=== PATIENT | male | born 1945 | race Caucasian/White ===

== ENCOUNTER 2020-01-03 10:08 | Inpatient (IN) | payer MEDICARE ==
[~2020-01-03] VITALS: Ht 177.8 cm; Wt 77.3 kg
[2020-01-03 11:57] LABS: BASOPHILS # (AUTO) 0.1 X10'3 (0-0.2); EOSINOPHILS # (AUTO) 0.3 X10'3 (0-0.9); HEMOGLOBIN 15.8 g/dl (14.0-17.9); MONOCYTES # (AUTO) 0.6 X10'3 (0-0.9); NEUTROPHILS # (AUTO) 2.1 X10'3 (1.8-7.7); WHITE BLOOD COUNT 4.4 X10'3 (4.5-11.0)
[2020-01-03 12:00] LABS: BASOPHILS % (AUTO) 1.3 % (0-1); EOSINOPHILS % (AUTO) 6.4 % (0-6); HEMATOCRIT 45.7 % (42.0-52.0); LYMPHOCYTES # (AUTO) 1.4 X10'3 (1.1-4.8); LYMPHOCYTES % (AUTO) 31.1 % (21-51); MEAN CORPUSCULAR HEMOGLOBIN 33.1 PG (27.0-31.0); MEAN CORPUSCULAR HGB CONC 34.5 g/dL (33.0-36.5); MEAN CORPUSCULAR VOLUME 96.2 FL (78-98); MEAN PLATELET VOLUME 8.4 FL (7.4-10.4); MONOCYTES % (AUTO) 13.4 % (2-12); NEUTROPHILS % (AUTO) 47.8 % (42-75); PLATELET COUNT 162 X10'3 (140-440); RED BLOOD COUNT 4.75 X10'6 (4.70-6.10); RED CELL DISTRIBUTION WIDTH 13.3 % (11.5-14.5)
[2020-01-03 12:02] LABS: ALANINE AMINOTRANSFERASE 38 U/L (12-78); ALBUMIN 3.7 G/DL (3.4-5.0); ALBUMIN/GLOBULIN RATIO 0.9 (1.1-1.5); ALKALINE PHOSPHATASE 53 IU/L (46-116); ANION GAP 8 (8-16); ASPARTATE AMINO TRANSFERASE 20 U/L (10-37); BILIRUBIN,TOTAL 0.8 MG/DL (0.1-1.0); BLOOD UREA NITROGEN 20 MG/DL (7-18); BUN/CREATININE RATIO 20.2 (5.4-32.0); CHLORIDE 103 MMOL/L (99-107); CREATININE 0.99 MG/DL (0.60-1.10); GLUCOSE 147 MG/DL (70-104); SODIUM 138 MMOL/L (135-145); TOTAL PROTEIN 7.6 G/DL (6.4-8.2); eGFR 74 ML/MIN
--- NOTE | 2020-01-03 13:21 | NUR ---
WAITING ON DR. MORGAN TO CALL BACK PT. TAKING A NAP
[2020-01-03] MEDS ORDERED: ampicillin/sulbac 3gm/NS 100ml 100 ML IV ONE (13:50)
[2020-01-03] MEDS ORDERED: vancomycin/NS 1 GM ADD-VANTAGE 250 ML IV ONE (13:55)
[2020-01-03] MEDS: normal saline 1000ml 1,000 ML IV SCH (14:03)
[2020-01-03] MEDS ORDERED: potassium Cl 20 mEq SR tablet PO PRN ×2 (14:05)
[2020-01-03] MEDS ORDERED: HYDROcodone/acetaminophen 5mg/325mg tablet PO PRN (14:05)
[2020-01-03] MEDS ORDERED: ondansetron/PF 4mg/2ml inj IV PRN (14:05)
[2020-01-03] MEDS ORDERED: HYDROcodone/acetaminophen 10/325mg tab PO PRN (14:05)
[2020-01-03] MEDS ORDERED: mag hydrox/Alum hydrox/simeth 30ml oral suspension PO PRN (14:05)
[2020-01-03] MEDS ORDERED: diphenhydrAMINE 25mg capsule PO PRN (14:05)
[2020-01-03] MEDS ORDERED: magnesium hydroxide 30ml (MOM) UD suspension PO PRN (14:05)
[2020-01-03] MEDS ORDERED: magnesium Cl slow-release 64mg tablet PO PRN (14:05)
[2020-01-03] MEDS ORDERED: magnesium 4gm in 100ml NS 100 ML IV PRN (14:05)
[2020-01-03] MEDS ORDERED: bisacodyl 10mg suppository rectal RC PRN (14:05)
[2020-01-03] MEDS ORDERED: acetaminophen 650mg rectal suppository RC PRN (14:05)
[2020-01-03] MEDS ORDERED: magnesium 2GM in 50ml NS 50 ML IV PRN (14:05)
[2020-01-03] MEDS ORDERED: acetaminophen 325mg tablet PO PRN ×2 (14:05)
[2020-01-03] MEDS ORDERED: morphine 2 MG/ML inj. syringe IV PRN ×2 (14:05)
[2020-01-03] MEDS ORDERED: potassium CL 10mEq/100ml bag 100 ML IV PRN ×2 (14:05)
[2020-01-03 14:32] LABS: HEMOGLOBIN A1C 5.8 % (4.5-6.2)
[2020-01-03 15:20] VITALS: BP 143/87
[2020-01-03] MEDS ORDERED: ADV50250 IH (16:36)
[2020-01-03] MEDS ORDERED: LOSA1TAB39 PO (16:36)
--- NOTE | 2020-01-03 16:52 | NUR ---
Patient came up with splint in place, unable to view hand cellulitis/ cat bite. No photos were taken in the ER.
[2020-01-03] MEDS: piperacillin/tazo 3.375gm/50ml 50 ML IV SCH ×2 (17:02→23:57)
[2020-01-03] MEDS ORDERED: albuterol 2.5 MG/3 ML nebule NEB PRN (17:25)
[2020-01-03 18:00] VITALS: BP 143/92
--- NOTE | 2020-01-03 18:30 | NUR ---
Problems reprioritized. Patient report given, questions answered & plan of care reviewed with Maria Elena CAZARES.
--- NOTE | 2020-01-03 18:40 | NUR ---
A nurse from ER called me regarding the patient needing a Loo Sling per Dr. Escobedo. I paged 5 CUPS and some sugar to apply this.
--- NOTE | 2020-01-03 19:00 | NUR ---
[employer] called staff back and informed her that hospital does not carry Loo sling; and to attach the pt's sling to IV pole to elevate arm off bed and above head instead.
--- NOTE | 2020-01-03 19:17 | NUR ---
Patient in room ORTHO 4011. I have received report from Bindu CAZARES and had the opportunity to ask questions and assume patient care.
[2020-01-03] MEDS: K and/or MAG REPLACEMENT MC SCH (20:00)
[2020-01-03] MEDS: heparin, porcine 5000 units/ml vial SQ SCH (20:20)
[2020-01-03] MEDS: budesonide 0.5mg/2ml UD nebule IH SCH (20:24)
[2020-01-03 22:00] VITALS: BP 110/84
--- NOTE | 2020-01-03 22:26 | NUR ---
Problems reprioritized. Patient report given, questions answered & plan of care reviewed with Consuelo CAZARES.
--- NOTE | 2020-01-03 23:17 | NUR ---
[id number] ASSUMED CARE OF PATIENT WITH VERBAL REPORT FROM STEVIE CAZARES
--- NOTE | 2020-01-03 23:21 | NUR ---
AGREE WITH PATIENT ASSMT DONE BY STEVIE CAZARES. PRIOR TO MY ASSUMING CARE OF THIS PT. RESTING COMFORTABLY AT THIS TIME, NO DISTRESS NOTED. R HAND/ARM PLACED UP ON PILLOW.
[2020-01-04] MEDS: vancomycin/NS 1 GM ADD-VANTAGE 250 ML IV SCH ×2 (01:51→13:56)
[2020-01-04 05:53] LABS: BASOPHILS # (AUTO) 0.1 X10'3 (0-0.2); BASOPHILS % (AUTO) 1.3 % (0-1); EOSINOPHILS # (AUTO) 0.4 X10'3 (0-0.9); HEMATOCRIT 44.3 % (42.0-52.0); LYMPHOCYTES # (AUTO) 1.7 X10'3 (1.1-4.8); LYMPHOCYTES % (AUTO) 33.7 % (21-51); MEAN CORPUSCULAR HEMOGLOBIN 32.5 PG (27.0-31.0); MEAN CORPUSCULAR HGB CONC 33.7 g/dL (33.0-36.5); MEAN CORPUSCULAR VOLUME 96.5 FL (78-98); MEAN PLATELET VOLUME 8.3 FL (7.4-10.4); MONOCYTES # (AUTO) 0.6 X10'3 (0-0.9); MONOCYTES % (AUTO) 12.1 % (2-12); NEUTROPHILS # (AUTO) 2.2 X10'3 (1.8-7.7); NEUTROPHILS % (AUTO) 43.9 % (42-75); PLATELET COUNT 145 X10'3 (140-440); RED CELL DISTRIBUTION WIDTH 12.9 % (11.5-14.5)
[2020-01-04 06:00] VITALS: BP 137/91
[2020-01-04 06:08] LABS: ALANINE AMINOTRANSFERASE 27 U/L (12-78); ALBUMIN 3.1 G/DL (3.4-5.0); ALKALINE PHOSPHATASE 44 IU/L (46-116); ANION GAP 8 (8-16); ASPARTATE AMINO TRANSFERASE 18 U/L (10-37); BLOOD UREA NITROGEN 18 MG/DL (7-18); BUN/CREATININE RATIO 17.8 (5.4-32.0); CALCIUM 8.5 MG/DL (8.5-10.1); CHLORIDE 106 MMOL/L (99-107); CHOL/HDL RATIO 4.1 (0.00-4.99); CHOLESTEROL 146 MG/DL (0-200); CREATININE 1.01 MG/DL (0.60-1.10); GLUCOSE 101 MG/DL (70-104); HDL CHOLESTEROL 36 MG/DL (35-60); LDL CHOLESTEROL 92 MG/DL (50-100); MAGNESIUM 2.2 MG/DL (1.5-2.4); PHOSPHORUS 3.6 MG/DL (2.3-4.5); POTASSIUM 3.7 MMOL/L (3.5-5.1); SODIUM 141 MMOL/L (135-145); TOTAL CARBON DIOXIDE 27.5 MMOL/L (24-32); TOTAL PROTEIN 6.3 G/DL (6.4-8.2); TRIGLYCERIDES 121 MG/DL (20-135); eGFR 73 ML/MIN
--- NOTE | 2020-01-04 06:34 | NUR ---
Problems reprioritized. Patient report given, questions answered & plan of care reviewed with JULIETTE RN.
--- NOTE | 2020-01-04 06:55 | NUR ---
Patient in room ORTHO 4011. I have received report from SAGE HOSKINS and had the opportunity to ask questions and assume patient care.
[2020-01-04] MEDS: budesonide 0.5mg/2ml UD nebule IH SCH (07:58)
[2020-01-04] MEDS ORDERED: HYDROchlorothiazide 25mg tablet PO SCH (08:00)
[2020-01-04] MEDS ORDERED: losartan 50mg tablet PO SCH (08:00)
[2020-01-04] MEDS: K and/or MAG REPLACEMENT MC SCH (08:00)
[2020-01-04] MEDS: normal saline 1000ml 1,000 ML IV SCH ×2 (08:03→10:03)
[2020-01-04] MEDS: piperacillin/tazo 3.375gm/50ml 50 ML IV SCH ×2 (08:05→16:00)
[2020-01-04] MEDS: heparin, porcine 5000 units/ml vial SQ SCH (08:22)
[2020-01-04 10:05] LABS: CLARITY,URINE CLEAR (Clear); COLOR,URINE YELLOW (Yellow); GLUCOSE, URINE NEGATIVE (Neg); KETONES,URINE NEGATIVE (Neg); LEUKOCYTE ESTERASE ,URINE NEGATIVE (Neg); NITRITES, URINE NEGATIVE (Neg); OCCULT BLOOD,URINE NEGATIVE (Neg); PH,URINE 6.5 (4.8-8.0); PROTEIN,URINE NEGATIVE (Neg); UROBILINOGEN,URINE 0.2 E.U/dL (0.2-1.0)
[2020-01-04 10:08] LABS: UA COLLECTION TYPE VOIDED
[2020-01-04 11:00] VITALS: BP 141/82
--- NOTE | 2020-01-04 15:16 | NUR ---
PAGER ID: [phone] MESSAGE: DR. HURT, DR. MORGAN IS HERE. SAID [id number]/MAGGY CAN BE DISCHARGED ON PO ABX. JULIETTE [phone]. TY.
[2020-01-04] MEDS ORDERED: LINE600T12 PO (15:27)
[2020-01-04] MEDS ORDERED: HYDR-4383 PO (15:27)
[2020-01-05] MEDS ORDERED: VANCOMYCIN LEVEL IV ONE (01:30)
--- NOTE | 2020-01-06 09:56 | NUR ---
Case management DC follow up: LM/VM re post DC follow up, questions, concerns
== END 2020-01-04 17:15 | disposition home or self-care (01) | DRG 605 ==
LOC: ER 10:09 → ED HOLD 14:03 → ORTHO 4S 15:37
PROVIDERS: ADMIT Family Medicine; ATTEND Family Medicine
DX: S61.451A Open bite of right hand, initial encounter (principal); I10 Essential (primary) hypertension; J45.909 Unspecified asthma, uncomplicated; Z82.49 Family history of ischemic heart disease and other diseases of the circulatory system; W55.01XA Bitten by cat, initial encounter; Y93.89 Activity, other specified; Y92.89 Other specified places as the place of occurrence of the external cause; Y99.8 Other external cause status; Z90.49 Acquired absence of other specified parts of digestive tract; Z79.899 Other long term (current) drug therapy
CPT/HCPCS: 36415; 80053; 80061; 81003; 83036; 83605; 83735; 84100; 85025; 87040; 87081; 94640; 94760; 99285; G0378; J0295; J1644; J2543; J3370; J7030; J7626; Q0163